=== PATIENT | female | born 1995 | race African-American/Black ===

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

== ENCOUNTER 2018-01-26 12:05 | Emergency (ER) | payer MEDICAID ==
[~2018-01-26] VITALS: Ht 170.2 cm; Wt 63.6 kg
[2018-01-26] MEDS ORDERED: LIDOCAINE 1% 10 ML VIAL INJ ONE (12:30)
[2018-01-26 13:57] LABS: APPEARANCE,URINE CLOUDY (CLEAR); BILIRUBIN,URINE NEGATIVE (NEGATIVE); GLUCOSE, URINE (UA) NEGATIVE (NEGATIVE); KETONES,URINE NEGATIVE (NEGATIVE); LEUKOCYTE ESTERASE ,URINE TRACE (NEGATIVE); NITRATE,URINE NEGATIVE (NEGATIVE); OCCULT BLOOD,URINE NEGATIVE (NEGATIVE); PH,URINE 6.5 (5.0-8.0); PROTEIN,URINE NEGATIVE (NEGATIVE); UROBILINOGEN,URINE 0.2 mg/dL (<=1.0)
[2018-01-26 13:59] LABS: BACTERIA,URINE Moderate /HPF (None Seen); RBC,URINE None Seen /HPF (0-2); SQUAMOUS EPITHELIAL CELL,UR Moderate /LPF (None Seen)
[2018-01-26 14:14] VITALS: BP 104/69
== END 2018-01-26 14:50 | disposition home or self-care (01) ==
LOC: EMS 12:06
DX: N75.0 Cyst of Bartholin's gland (principal); N83.201 Unspecified ovarian cyst, right side
CPT/HCPCS: 56420; 81001; 84703; 87086; 99284; J3490

== ENCOUNTER 2020-02-05 10:09 | Emergency (ER) | payer MEDICAID, OTHER ==
[~2020-02-05] VITALS: Ht 170.2 cm; Wt 65.9 kg
[2020-02-05 10:10] VITALS: BP 121/71
[2020-02-05] MEDS ORDERED: DOXYCYCLINE HYCLATE 100 MG TABLET PO ONE (11:30)
[2020-02-05] MEDS ORDERED: LIDOCAINE 1% 10 ML VIAL INJ ONE (11:30)
[2020-02-05] MEDS ORDERED: CEPHALEXIN MONOHYDRATE 500 MG CAPSULE PO ONE (11:30)
[2020-02-05] MEDS ORDERED: IBUPROFEN 600 MG TABLET PO ONE (11:30)
== END 2020-02-05 12:55 | disposition home or self-care (01) ==
LOC: EMS 10:15
DX: B37.3 Candidiasis of vulva and vagina (principal); N75.1 Abscess of Bartholin's gland
CPT/HCPCS: 56420; 81025; 99284; J3490

== ENCOUNTER 2020-04-07 22:03 | Emergency (ER) | payer OTHER ==
[~2020-04-07] VITALS: Ht 170.2 cm; Wt 65.9 kg
[2020-04-07 23:55] VITALS: BP 120/69
[2020-04-08] MEDS ORDERED: LIDOCAINE 1% 10 ML VIAL INJ ONE
== END 2020-04-08 00:42 | disposition home or self-care (01) ==
LOC: EMS 22:03
DX: N75.0 Cyst of Bartholin's gland (principal); N76.4 Abscess of vulva
CPT/HCPCS: 56405; 99284; J3490

== ENCOUNTER 2020-09-17 18:44 | Emergency (ER) | payer OTHER ==
[~2020-09-17] VITALS: Ht 170.2 cm; Wt 65.9 kg
[2020-09-17] MEDS ORDERED: LIDOCAINE 1%/EPI 1:200,000/PF 10 ML VIAL SQ ONE (20:15)
[2020-09-17 21:15] VITALS: BP 114/66
== END 2020-09-17 21:42 | disposition home or self-care (01) ==
LOC: EMS 18:45
DX: N75.0 Cyst of Bartholin's gland (principal)
CPT/HCPCS: 56420; 99284; J3490

== ENCOUNTER 2021-05-12 04:21 | Emergency (ER) | payer OTHER ==
[2021-05-12] MEDS ORDERED: PERTUSS(ACELL),DIPH,TET VAC/PF 0.5 ML SYRINGE IM. ONE (08:15)
[2021-05-12] MEDS ORDERED: LIDOCAINE 1%/EPI 1:200,000/PF 30 ML VIAL SQ ONE (08:15)
[2021-05-12 09:15] VITALS: BP 114/76
[2021-05-12] MEDS ORDERED: SULF1TAB42 PO (09:44)
[2021-05-12] MEDS ORDERED: ACETAMINOPHEN 500 MG TABLET PO ONE (09:45)
[2021-05-12] MEDS ORDERED: IBUPROFEN 600 MG TABLET PO ONE (09:45)
[2021-05-12] MEDS ORDERED: SULFAMETHOX/TRIMETH DS 800-160 MG/TABLET PO ONE (09:45)
== END 2021-05-12 10:20 | disposition home or self-care (01) ==
LOC: EMS 04:22
DX: N75.1 Abscess of Bartholin's gland (principal)
CPT/HCPCS: 56420; 90471; 90715; 99284; J3490